=== PATIENT | male | born 1990 ===

== ENCOUNTER → 2019-05-09 | Outpatient (CLI) | payer BC ==
[~2019-05-09] MED LIST: CEPH500C PO; CPR500T PO; OMEP20CA6 PO
--- NOTE | 2019-05-09 11:59 | Diagnostic Imaging Report ---
PROCEDURE: CT sinuses without contrast TECHNIQUE: Multiple contiguous axial images were obtained through the sinuses without the use of intravenous contrast. Coronal and sagittal reformations were then performed. Auto Exposure Controls were utilized during the CT exam to meet ALARA standards for radiation dose reduction. INDICATION: Sinusitis. COMPARISON: None. FINDINGS: Near-complete opacification of the right maxillary sinus with hyperattenuating contents. The right maxillary sinus is diminutive in comparison to the left, consistent with chronic inflammation. No air-fluid levels. Moderate leftward bowing of the nasal septum. No periapical lucencies about the maxillary dentition. Normal alignment of the temporomandibular joints. The visualized middle ears are clear. Visualized skull base is intact. IMPRESSION: 1. CT findings consistent with chronic inflammatory disease in the right maxillary sinus. 2. No acute CT findings. Dictated by: Dictated on workstation # [id number]
== END ==
LOC: RAD 11:06
PROVIDERS: ATTEND Physician Assistant
DX: J32.0 Chronic maxillary sinusitis (principal)
CPT/HCPCS: 70486

== ENCOUNTER 2023-03-06 19:57 | Emergency (ER) | payer BC ==
[~2023-03-06] VITALS: Ht 177.8 cm; Wt 83.9 kg
--- NOTE | 2023-03-06 20:15 | ED GU-Male ---
General Chief Complaint: - Reproductive Stated Complaint: RT TESTICLE SWOLLEN - UNSURE IF FROM ACCIDENT Source: patient History of Present Illness Date Seen by Provider: Mar 06, 2023 Time Seen by Provider: 20:15 Initial Comments Patient is a 32-year-old male who presents to the emergency department with a chief complaint of concern for right testicular swelling and discomfort. Patient states its been going on for about a week he rates it at about a 4. He states that she just mild dull ache. He does state that he was having sex about a week ago and noticed the discomfort after intercourse. It was a little bit more "vigorous" and she was in an awkward position he states. He has not had any issues with urination. He has had an erection since then but he feels like he does not "last as long" after the discomfort. He has been able to have sex however. No concerns at all for sexually transmitted infection. He has never had any genitourinary surgeries. Denies dysuria, urgency frequency and constipation. Has not taken anything for the pain Timing/Duration: week Severity/Quality: mild, aching Location: scrotal (Right testicle) Radiation: other (Right thigh) Activities at Onset: sexual activity Sexual [place] History: single partner Modifying Factors: Worsens With Movement Associated Symptoms: other (Thigh pain) Allergies and Home Medications Allergies Coded Allergies: No Known Drug Allergies (Unverified , 11/07/08) Patient Home Medication List Home Medication List Reviewed: Yes Cephalexin Monohydrate (Cephalexin) 500 Mg Capsule, 1 EACH PO TID Prescribed by: MELINDA BARKER on 07/17/142148 Ciprofloxacin (Cipro) 500 Mg Tablet, 1 TAB PO BID Prescribed by: DC ARZATE on 11/07/088 Omeprazole (Prilosec) 20 Mg Capsule.dr, 20 MG PO DAILY Prescribed by: DC ARZATE on 11/07/08 2338 Review of Systems Review of Systems Constitutional: see HPI Gastrointestinal: no symptoms reported Genitourinary: other (Right testicular discomfort) Musculoskeletal: no symptoms reported Skin: no symptoms reported Past Cajigdu-Otzvyp-Pulpey Hx Immunizations Up To Date Tetanus Booster (TDap): Less than 5yrs Physical Exam Vital Signs Vital Signs - First Documented 03/06/23 20:13 Temp 36.3 Pulse 86 Resp 18 B/P (MAP) 153/112 (126) Pulse Ox 99 O2 Delivery Room Air Capillary Refill : Height, Weight, BMI Height: 5'11" Weight: 190lbs. oz. [id number]; BMI Method:Stated General Appearance: WD/WN, no apparent distress Respiratory: no respiratory distress, no accessory muscle use Gastrointestinal: non tender, soft Male: other (Normal lie of both testicles. There is no appreciable right testicular swelling. Cremasteric is intact bilaterally. He does have mild tenderness to palpation in the proximal medial right thigh. No skin wounds, rashes. No penile discharge. No epididymal tenderness) Extremities: normal range of motion, normal inspection Progress/Results/Core Measures Suspected Sepsis SIRS Temperature: Pulse: Respiratory Rate: Blood Pressure / Mean: Results/Orders Vital Signs/I&O 03/06/23 20:13 Temp 36.3 Pulse 86 Resp 18 B/P (MAP) 153/112 (126) Pulse Ox 99 O2 Delivery Room Air Capillary Refill : Progress Note : Time: 20:25 Progress Note Patient seen and evaluated by me. Evaluation today includes history and p hysical exam. Pertinent physical exam findings include normal genitourinary exam without any skin wounds or rashes/lesions. Normal lie of both testicles. Mildly tender right testicle to palpation. No epididymal tenderness. No masses. Cremasteric's present bilaterally. Tenderness to the right thigh. No swelling there or lesions or ecchymosis. Differential diagnosis includes testicular torsion, epididymitis, orchitis, groin strain Patient evaluation is inconsistent with testicular torsion. He has a normal physical exam. No epididymal tenderness, no significant right testicular swelling. He has reproducible tenderness in the right inguinal and medial thigh region. Suspect groin strain that is radiating pain into the right testicle. Recommended anti-inflammatories and briefs versus boxers to support the testicles. Advised if he develops worsening pain or swelling to return to the ER. Patient is appreciative of the plan of care and understands discharge instructions. All questions are sought and answered. Departure Impression Primary Impression: Strain of right groin Additional Impression: Testicular discomfort Disposition: 01 HOME, SELF-CARE Condition: Stable Departure-Patient Inst. Decision time for Depature: 20:27 Referrals: AMANDA LINARES (PCP/Family) Primary Care Physician Patient Instructions: Groin Strain (DC) Add. Discharge Instructions: You should wear boxer briefs versus generic boxers for testicular support/scrotal support. I would recommend [id number] generic Aleve, 500 mg twice daily with food for the next week for pain. If you have worsening pain or swelling, discomfort with urination or any other developing or worsening symptoms please return to the emergency department for reevaluation. An ice pack also may help a little bit to the discomfort of the right inner thigh. Copy Copies To 1: RONALD SANDRA KATHRYN M MD Mar 06, 2023 20:15
[2023-03-06 20:33] VITALS: BP 145/82
== END 2023-03-06 20:34 | disposition home or self-care (01) ==
LOC: EDUNIT# 19:57 → ER 20:01
DX: S39.011A Strain of muscle, fascia and tendon of abdomen, initial encounter (principal); N50.811 Right testicular pain; M79.651 Pain in right thigh; X58.XXXA Exposure to other specified factors, initial encounter
CPT/HCPCS: 99281